=== PATIENT | female | born 1970 ===

== ENCOUNTER 2018-07-19 12:42 | Emergency (ER) | payer OTHER ==
[~2018-07-19] VITALS: Ht 162.6 cm; Wt 59.0 kg
[2018-07-19] MEDS ORDERED: KLONOPIN PO (13:35)
[2018-07-19] MEDS ORDERED: ZITHROMAX500 MG PO (16:22)
[2018-07-19] MEDS ORDERED: TESSALON PERLE100 M1 PO (16:22)
[2018-07-19] MEDS ORDERED: FLONASE ALLERG9.9 ML NASAL (16:22)
[2018-07-19] MEDS ORDERED: XOPENEX HFA15 GM IH (16:22)
[2018-07-19] MEDS ORDERED: MUCINEX DM ER1 EAC1 PO (16:22)
== END 2018-07-19 18:54 | disposition home or self-care (01) ==
LOC: ER 12:42
DX: J06.9 Acute upper respiratory infection, unspecified (principal)